=== PATIENT | male | born 1955 | race Caucasian/White ===

== ENCOUNTER 2023-04-14 08:30 | Outpatient (CLI) | payer BC | END 2023-04-14 08:31 | disposition home or self-care (01) | LOC: NM 08:30 | PROVIDERS: ATTEND Urology | DX: C61 Malignant neoplasm of prostate (principal) | CPT/HCPCS: 78306; A9503 ==

== ENCOUNTER 2025-05-10 09:56 | Outpatient (CLI) | payer MEDICARE ==
[2025-05-10 10:46] LABS: #Basophils Less than 0.03 10x3/uL (0.0-0.2); #Eosinophils 0.04 10x3/uL (0.0-0.7); #Monocytes 0.67 10x3/uL (0.11-0.59); #Neutrophils 3.15 10x3/uL (1.40-6.50); %Basophils 0.4 % (0.0-1.0); %Eosinophils 0.8 % (0.0-10.0); %Lymphocytes 26.4 % (21.0-51.0); %Monocytes 12.6 % (0.0-10.0); %Neutrophils 59.4 % (42.0-75.0); Hematocrit 46.0 % (42.0-52.0); Hemoglobin 15.0 g/dL (14.0-18.0); Mean Corpuscular Hemoglobin 31.4 pg (27.0-31.0); Mean Corpuscular Volume 96.2 fL (78.0-98.0); Platelet Count 183 10x3/uL (130-400); Red Blood Cell (RBC) Count 4.78 mill/uL (4.70-6.10); White Blood Cell (WBC) Count 5.30 10x3/uL (4.8-10.8)
== END 2025-05-10 09:57 | disposition home or self-care (01) ==
LOC: LABBT 09:56
PROVIDERS: ATTEND Thoracic Surgery (Cardiothoracic Vascular Surgery)
DX: Z01.818 Encounter for other preprocedural examination (principal); I25.10 Atherosclerotic heart disease of native coronary artery without angina pectoris
CPT/HCPCS: 71046; 85025; 93005; 93010

== ENCOUNTER 2025-05-10 10:00 | Inpatient (IN) | payer MEDICARE ==
[2025-05-10 11:01] LABS: Anion Gap 14 mmol/L (10-20); BUN (Urea Nitrogen) 14 mg/dL (8.4-25.7); Calc. Creatinine Clearance 0 mL/min (70-130); Calcium 9.8 mg/dL (7.8-10.44); Carbon Dioxide 25 mmol/L (23-31); Chloride 106 mmol/L (98-107); Glucose 93 mg/dL (80-115); Potassium 4.3 mmol/L (3.5-5.1); Sodium 141 mmol/L (136-145)
[2025-05-11] MEDS ORDERED: Heparin 10,000 UNITS/1 ML VIAL 30,000 UNITS in Sodium Chloride 0.9% 1,000 ML FS SCH (06:45)
[2025-05-11] MEDS ORDERED: Ketamine In 0.9 % NaCl 50 MG/5 ML SYRINGE ONE (06:55)
[2025-05-11] MEDS ORDERED: Lidocaine 1% PF 5 ML VIAL ONE ×2 (07:00→09:43)
[2025-05-11] MEDS ORDERED: Rocuronium Bromide 10 MG/ML (10ML VIAL) ONE (07:33)
[2025-05-11] MEDS ORDERED: Calcium Chloride 1 GM/10 ML Abboject SYRINGE ONE (07:33)
[2025-05-11] MEDS ORDERED: Cardioplegic Soln 1,000 ML BAG ONE (07:33)
[2025-05-11] MEDS ORDERED: Thrombin 20 THOU.UNITS/20 ML VIAL ONE (07:33)
[2025-05-11] MEDS ORDERED: Heparin 30,000 units/30 ml VIAL ONE (07:33)
[2025-05-11] MEDS ORDERED: PHENYLEPHRINE-NS 100 MCG/ML 10 ML SYRINGE ONE (07:33)
[2025-05-11] MEDS ORDERED: Heparin 5,000 UNITS/ML VIAL ONE (07:33)
[2025-05-11] MEDS ORDERED: fentaNYL PF 100 MCG/2 ML SYRINGE ONE ×2 (09:14→10:16)
[2025-05-11] MEDS ORDERED: NOREPINEPHRINE 8 MG/250 ML-D5W 250 ML IVPB PRN (10:31)
[2025-05-11] MEDS ORDERED: hydrALAZINE 20 MG/ML VIAL SLOW IVP PRN (10:31)
[2025-05-11] MEDS ORDERED: Guaifenesin DM 100-10/5 ML UDCUP PO PRN (10:31)
[2025-05-11] MEDS ORDERED: Electrolyte Replacement Protocol 1 EACH FS SCH (10:31)
[2025-05-11] MEDS ORDERED: Bisacodyl 10 MG SUPP PR PRN (10:31)
[2025-05-11] MEDS ORDERED: Potassium Chloride 20 MEQ (100 mL) BAG IVPB PRN (10:31)
[2025-05-11] MEDS ORDERED: Ondansetron PF 4 MG/2 ML Vial IVP PRN (10:31)
[2025-05-11] MEDS ORDERED: Mag-Al 1200 mg/1200 mg/30 ML UDCUP PO PRN (10:31)
[2025-05-11] MEDS ORDERED: Nitroglycerin 50 MG/250 ML BOT 250 ML IVPB PRN (10:31)
[2025-05-11] MEDS ORDERED: Glucagon 1 MG/ML KIT SC PRN (11:00)
[2025-05-11] MEDS ORDERED: Dextrose 50% Abboject 50 ML SYRINGE SLOW IVP PRN (11:00)
[2025-05-11 11:02] LABS: Actual Bicarbonate (HCO3a) 17.5 mEq/L (22-28); Base Excess (BEa) -6.9 mEq/L (-2.0 to +3.0); CO2 Tension 31.7 mmHg (35.0-45.0); Calcium, Ionized (arterial) 1.12 mmol/L (1.12-1.30); Hematocrit-ABG 38 % (42.0-52.0); Hemoglobin (Hb) 12.8 g/dL (14.0-18.0); O2 Tension (PaO2), arterial 87.9 mmHg (> 70.0); Potassium - ABG Lab 4.01 mmol/L (3.70-5.30); pH, Arterial 7.359 (7.35-7.45)
[2025-05-11] MEDS: D5 1/2 NS w/20 mEq KCL 1,000 ML IV SCH (11:03)
[2025-05-11] MEDS: Ketorolac Tromethamine 30 MG (1 mL) VIAL IVP SCH (11:04)
[2025-05-11] MEDS: Magnesium 2 GM/50 ML(in water) 2 GM in Premix 1 BAG IVPB SCH (11:04)
[2025-05-11 11:06] LABS: Puncture Site Arterial Line
[2025-05-11 11:09] LABS: INR-International Normal Ratio 1.5; PTT 31.3 sec (22.9-36.1); Prothrombin Time 18.5 sec (12.0-14.7)
[2025-05-11 11:15] LABS: Hematocrit 35.7 % (42.0-52.0); Hemoglobin 11.7 g/dL (14.0-18.0); Mean Corpuscular Hemoglobin 31.8 pg (27.0-31.0); Mean Corpuscular Volume 97.0 fL (78.0-98.0); Platelet Count 101 10x3/uL (130-400); Red Blood Cell (RBC) Count 3.68 mill/uL (4.70-6.10); White Blood Cell (WBC) Count 1.53 10x3/uL (4.8-10.8)
[2025-05-11 11:16] LABS: Anion Gap 10 mmol/L (10-20); BUN (Urea Nitrogen) 15 mg/dL (8.4-25.7); Calc. Creatinine Clearance 94 mL/min (70-130); Calcium 7.3 mg/dL (7.8-10.44); Carbon Dioxide 20 mmol/L (23-31); Chloride 115 mmol/L (98-107); Glucose 104 mg/dL (80-115); Potassium 4.1 mmol/L (3.5-5.1); Sodium 141 mmol/L (136-145)
[2025-05-11] MEDS: Norepinephrine 8 MG/0.9% NS 250 ML IVPB PRN (11:21)
[2025-05-11] MEDS: Albumin 5% 12.5 GM (250 mL) BOT IVPB PRN ×2 (11:22→22:38)
[2025-05-11 13:07] LABS: Platelet Adequacy Comment Platelets Decreased; RBC Morphology Within Normal Limits; Smudge Cells 18.4 %
[2025-05-11 14:42] LABS: Actual Bicarbonate (HCO3a) 15.6 mEq/L (22-28); Base Excess (BEa) -7.5 mEq/L (-2.0 to +3.0); CO2 Tension 25.3 mmHg (35.0-45.0); Calcium, Ionized (arterial) 1.10 mmol/L (1.12-1.30); Hematocrit-ABG 37 % (42.0-52.0); Hemoglobin (Hb) 12.6 g/dL (14.0-18.0); O2 Tension (PaO2), arterial 117.7 mmHg (> 70.0); Potassium - ABG Lab 4.01 mmol/L (3.70-5.30); pH, Arterial 7.407 (7.35-7.45)
[2025-05-11 14:43] LABS: ALV-art Gradient 135.875 mmHg (0-20); Puncture Site Arterial Line
[2025-05-11] MEDS: Gabapentin 300 MG CAP PO SCH (15:56)
[2025-05-11] MEDS: Acetaminophen 325 MG TAB PO PRN (16:36)
[2025-05-11 16:47] LABS: Hematocrit 35.2 % (42.0-52.0); Hemoglobin 11.6 g/dL (14.0-18.0)
[2025-05-11] MEDS: Hetastarch 6% 500 ML 500 ML IVPB PRN (17:02)
[2025-05-11 17:20] LABS: Potassium 4.1 mmol/L (3.5-5.1)
[2025-05-11] MEDS: Hetastarch 6% 500 ML 500 ML IVPB SCH (18:30)
[2025-05-11] MEDS: Famotidine/PF 20 mg/2ml Vial SLOW IVP SCH (20:38)
[2025-05-12 04:34] LABS: Hematocrit 31.5 % (42.0-52.0); Hemoglobin 10.2 g/dL (14.0-18.0); Mean Corpuscular Hemoglobin 31.7 pg (27.0-31.0); Mean Corpuscular Volume 97.8 fL (78.0-98.0); Platelet Count 98 10x3/uL (130-400); Red Blood Cell (RBC) Count 3.22 mill/uL (4.70-6.10); White Blood Cell (WBC) Count 17.56 10x3/uL (4.8-10.8)
[2025-05-12 05:12] LABS: Platelet Adequacy Comment Platelets Decreased; RBC Morphology Within Normal Limits; Smudge Cells 4.8 %
[2025-05-12 05:23] LABS: Anion Gap 11 mmol/L (10-20); BUN (Urea Nitrogen) 16 mg/dL (8.4-25.7); Calc. Creatinine Clearance 93 mL/min (70-130); Calcium 7.8 mg/dL (7.8-10.44); Carbon Dioxide 21 mmol/L (23-31); Chloride 116 mmol/L (98-107); Glucose 144 mg/dL (80-115); Magnesium 2.3 mg/dL (1.6-2.6); Potassium 4.6 mmol/L (3.5-5.1); Sodium 143 mmol/L (136-145)
[2025-05-12] MEDS: Magnesium 2 GM/50 ML(in water) 2 GM in Premix 1 BAG IVPB SCH (08:30)
[2025-05-12] MEDS: Pantoprazole 40 MG DR.TAB PO SCH (08:32)
[2025-05-12] MEDS: Aspirin 325 MG TAB PO SCH (08:32)
[2025-05-12] MEDS: Enoxaparin 40 MG (0.4 mL) SYRINGE SC SCH (08:33)
[2025-05-12] MEDS: Albumin 5% 12.5 GM (250 mL) BOT IVPB SCH (12:09)
[2025-05-12] MEDS: Transdermal Patch Removal TOP SCH (21:33)
[2025-05-12] MEDS: Mupirocin 1 GM TUBE NASAL DECOLONIZATION NASAL SCH (21:34)
[2025-05-13 05:53] VITALS: BMI 28.5
[2025-05-13] MEDS ORDERED: Mineral Oil ENEMA PR PRN (07:32)
[2025-05-13] MEDS ORDERED: Nitroglycerin 0.4 MG TAB (25 Tab Bottle) SL PRN (07:32)
[2025-05-13] MEDS ORDERED: Artificial Tear Ophth Sol 15 ML BOT EA EYE PRN (07:32)
[2025-05-13] MEDS ORDERED: Milk Of Magnesia 30 ML UDCUP PO PRN (07:32)
[2025-05-13] MEDS ORDERED: diphenhydrAMINE 25 MG CAP PO PRN (07:32)
[2025-05-13] MEDS ORDERED: PHOS-NAK 1 PKT PACK PO PRN (16:15)
[2025-05-13] MEDS ORDERED: Magnesium Sulfate In Water 4 GM in Premix 1 BAG IVPB PRN (16:15)
[2025-05-14 14:01] VITALS: BP 140/86; TEMP 97.8
== END 2025-05-14 13:50 | disposition home or self-care (01) | DRG 236 ==
LOC: SURG A 05-11 05:46 → CCU 05-11 10:58 → 2NO 05-13 19:50
PROVIDERS: ADMIT Thoracic Surgery (Cardiothoracic Vascular Surgery); ATTEND Thoracic Surgery (Cardiothoracic Vascular Surgery)
PROC: 02100Z9 Bypass Coronary Artery, One Artery from Left Internal Mammary, Open Approach (ICD-10-PCS; principal; 2025-05-11)
PROC: 021109W Bypass Coronary Artery, Two Arteries from Aorta with Autologous Venous Tissue, Open Approach (ICD-10-PCS; 2025-05-11)
PROC: 06BQ4ZZ Excision of Left Saphenous Vein, Percutaneous Endoscopic Approach (ICD-10-PCS; 2025-05-11)
PROC: 5A1221Z Performance of Cardiac Output, Continuous (ICD-10-PCS; 2025-05-11)
PROC: 02L70CK Occlusion of Left Atrial Appendage with Extraluminal Device, Open Approach (ICD-10-PCS; 2025-05-11)
PROC: 3E080GC Introduction of Other Therapeutic Substance into Heart, Open Approach (ICD-10-PCS; 2025-05-11)
PROC: 4A133R1 Monitoring of Arterial Saturation, Peripheral, Percutaneous Approach (ICD-10-PCS; 2025-05-11)
PROC: 3E033XZ Introduction of Vasopressor into Peripheral Vein, Percutaneous Approach (ICD-10-PCS; 2025-05-11)
PROC: 30233J1 Transfusion of Nonautologous Serum Albumin into Peripheral Vein, Percutaneous Approach (ICD-10-PCS; 2025-05-11)
PROC: 0T9B70Z Drainage of Bladder with Drainage Device, Via Natural or Artificial Opening (ICD-10-PCS; 2025-05-11)
PROC: 03HY32Z Insertion of Monitoring Device into Upper Artery, Percutaneous Approach (ICD-10-PCS; 2025-05-11)
PROC: 4A133B1 Monitoring of Arterial Pressure, Peripheral, Percutaneous Approach (ICD-10-PCS; 2025-05-11)
PROC: 4A133J1 Monitoring of Arterial Pulse, Peripheral, Percutaneous Approach (ICD-10-PCS; 2025-05-11)
PROC: 05H533Z Insertion of Infusion Device into Right Subclavian Vein, Percutaneous Approach (ICD-10-PCS; 2025-05-11)
PROC: B5161ZA Fluoroscopy of Right Subclavian Vein using Low Osmolar Contrast, Guidance (ICD-10-PCS; 2025-05-11)
DX: I25.10 Atherosclerotic heart disease of native coronary artery without angina pectoris (principal); I10 Essential (primary) hypertension; E78.5 Hyperlipidemia, unspecified; N40.0 Benign prostatic hyperplasia without lower urinary tract symptoms; Z87.01 Personal history of pneumonia (recurrent); Z85.46 Personal history of malignant neoplasm of prostate; Z97.3 Presence of spectacles and contact lenses; Z79.899 Other long term (current) drug therapy; Z79.82 Long term (current) use of aspirin; Z79.891 Long term (current) use of opiate analgesic
CPT/HCPCS: 36416; 71045; 80048; 82805; 83735; 84100; 85025; 85610; 85730; 86850; 86900; 86901; 93005; 93010; 93798; 94002; 94150; A4311; C1751; C1889; J0169; J1100; J1308; J1644; J1650; J1815; J1885; J2250; J2440; J2704; J2720; J3010; J3373; J3475; J3480; J3490; P9045; S0017